=== PATIENT | female | born 1965 | race Caucasian/White ===

== ENCOUNTER 2021-06-04 09:56 | Outpatient (REF) | payer OTHER, SELFPAY ==
[2021-06-04 10:24] LABS: MANUAL DIFF FLAG NO
[2021-06-04 10:25] LABS: Basophils Absolute Auto 0.1 X10*3/uL (0.0-0.2); Eosinophils Absolute Auto 0.3 X10*3/uL (0.0-0.4); Hematocrit 39.8 % (37-47); Imm Gran Abs Auto 0.02 X10*3/uL (0.00-0.03); Imm Gran Pct Auto 0.3 % (0.0-0.4); Lymphocytes Absolute Auto 2.9 X10*3/uL (1.2-4.9); Lymphocytes Percent Auto 36.9 % (20-40); Mean Corpuscular HGB Conc 32.7 g/dl (31.0-35.0); Mean Corpuscular Hemoglobin 28.4 pg (27.0-33.0); Mean Corpuscular Volume 87.1 fL (80-98); Mean Platelet Volume 9.6 fL (9.4-12.3); Monocytes Absolute Auto 0.6 X10*3/uL (0.1-1.2); Monocytes Percent Auto 7.7 % (2-11); Neutrophils Absolute Auto 3.9 X10*3/uL (2.0-8.3); Neutrophils Percent Auto 50.1 % (45-73); Platelet Count 454 X10*3/uL (160-400); Red Blood Count 4.57 X10*6/uL (4.20-5.50); Red Cell Distribution Width 12.8 % (11.0-16.0); White Blood Count 7.8 X10*3/uL (4.8-10.8)
[2021-06-04 11:00] LABS: Alanine Aminotransferase 20 U/L (0-31); Albumin Level 4.3 g/dL (3.5-5.0); Alkaline Phosphatase 79 U/L (39-117); Anion Gap 13 (12-20); Aspartate Amino Transferase 19 U/L (5-31); Bilirubin Total 0.3 mg/dL (0.0-1.0); Blood Urea Nitrogen 10 mg/dL (9-16); Carbon Dioxide 23 mmol/L (22-29); Chloride 107 mmol/L (96-108); Cholesterol 204 mg/dL; Estimated Glomerular Filt Rate > 60; Glucose Random 95 mg/dL (60-115); HDL Cholesterol 58 mg/dL; LDL Cholesterol Calculated 121 mg/dl; Potassium 4.5 mmol/L (3.3-5.1); Sodium 138 mmol/L (135-145); Total Protein 7.6 g/dL (6.5-8.0); Triglycerides 129 mg/dL
[2021-06-04 11:12] LABS: Calcium 10.7 mg/dL (8.4-10.2)
== END 2021-06-04 09:57 | disposition home or self-care (01) ==
LOC: HO.LAB 09:56
PROVIDERS: PCP Internal Medicine; Visit Provider Internal Medicine
DX: Z00.00 Encounter for general adult medical examination without abnormal findings (principal); R21 Rash and other nonspecific skin eruption; Z13.31 Encounter for screening for depression; Z68.25 Body mass index [BMI] 25.0-25.9, adult
CPT/HCPCS: 36415; 80053; 80061; 85025

== ENCOUNTER 2024-07-07 15:34 | Outpatient (REF) | payer OTHER, SELFPAY ==
[2024-07-09 08:04] LABS: Antibody to SS-A Antigen <1.0 NEG AI (<1.0 NEG); Antibody to SS-B Antigen <1.0 NEG AI (<1.0 NEG)
[2024-07-14 15:42] LABS: Anti Nuclear Antibody Screen NEGATIVE (NEGATIVE)
== END 2024-07-07 15:35 | disposition home or self-care (01) ==
LOC: HO.LAB 15:34
PROVIDERS: PCP Internal Medicine; Visit Provider Internal Medicine
DX: K12.0 Recurrent oral aphthae (principal); K21.9 Gastro-esophageal reflux disease without esophagitis; R68.2 Dry mouth, unspecified
CPT/HCPCS: 36415; 86038; 86235

== ENCOUNTER 2024-09-15 09:57 | Outpatient (REF) | payer OTHER, SELFPAY ==
--- NOTE | ~2024-09-15 | XR_ITS ---
EXAMINATION: XR FOOT, LEFT CLINICAL INFORMATION: Ankle sprain, rule out fracture left metatarsal, ankle sprain. COMPARISON: None available. TECHNIQUE: AP, lateral, and oblique views of the left foot. FINDINGS: Radiopaque marker placed by technologist to indicate the area of concern as indicated by the patient along the superior aspect of the tarsometatarsal joint region on the lateral view. Mild hypertrophic change along the posterior aspect of the calcaneus. There is an oblique, mildly displaced fracture with override of the mid to distal shaft of the 5th metatarsal. Adjacent soft tissue swelling noted. XR/XR foot LT min 3V IMPRESSION: Oblique, mildly displaced fracture with override of the mid to distal shaft of the 5th metatarsal. This study was presented today September 15, 2024 for interpretation. Stat results provided at this time as requested by referring provider. Electronically signed by: Malu Slade MD 09/15/2024 12:57 PM EDT
== END 2024-09-15 09:58 | disposition home or self-care (01) ==
LOC: HO.XRAY 09:57
PROVIDERS: PCP Internal Medicine; Visit Provider Internal Medicine
DX: S93.402D Sprain of unspecified ligament of left ankle, subsequent encounter (principal)
CPT/HCPCS: 73630